=== PATIENT | male | born 2005 | race Caucasian/White ===

== ENCOUNTER 2025-03-19 11:29 | Emergency (ER) | payer OTHER, SELFPAY ==
[2025-03-19 11:47] VITALS: BP 122/72; PULSE 63; RESP 18; TEMP 36.8; O2SAT 99
--- NOTE | 2025-03-19 12:53 | ED.WOUNDLAC ---
HPI - Wound/Laceration General Chief Complaint: Wound/Laceration Stated Complaint: cut leg Time Seen by Provider: 03/19/25 12:46 Source: patient and RN notes reviewed Mode of arrival: ambulatory Limitations: no limitations History of Present Illness HPI narrative: 19-year-old male patient presents today with a laceration to his left thigh that was sustained 1.5 hours prior to exam. He was turning off a chainsaw when the chain cut his thigh. It has been 5 years since his last tetanus shot. He flushed with hydrogen peroxide prior to arrival. Related Data Home Medications ?Medication ?Instructions ?Recorded ?Confirmed ?Last Taken ?Type omeprazole 03/19/25 Unknown History zyfaxin 03/19/25 Unknown History Allergies Allergy/AdvReac Type Severity Reaction Status Date / Time clindamycin Allergy Mild Verified 08/08/08 13:40 PMFSH Comments At time of signature, I have reviewed and agree with nursing past medical, surgical, social and family history unless otherwise noted. Please see nursing chart for further information. There is no relevant family history pertinent to the presenting complaint Exam Narrative: GENERAL: Well-appearing, well-nourished, and in no acute distress. HEAD: Normocephalic, atraumatic. EYES: EOMI. No redness or drainage. Conjunctivae normal. ENT: Mucous membranes pink and moist. NECK: Normal AROM. CHEST: No respiratory distress. EXTREMITIES: Normal range of motion. No edema. SKIN: Warm, dry, no rash. Capillary refill normal. Normal skin turgor. 4 cm full-thickness linear laceration to the left anterior thigh. Approximately 0.5 cm portion penetrates to the adipose. 2cm partial thickness linear abrasion laterally to the laceration. Distal sensation intact. Capillary refill normal. Full range of motion of the leg. NEURO: No focal deficits. Alert and oriented x3. Gait steady. PSYCH: Normal affect. No signs of depression or anxiety. Course Course Level of Care: Express Care Visit Vital Signs Vital signs: Vital Signs Temperature 98.2 F 03/19/25 11:47 Pulse Rate 63 03/19/25 11:47 Respiratory Rate 18 03/19/25 11:47 Blood Pressure 122/72 03/19/25 11:47 Pulse Oximetry 99 03/19/25 11:47 Oxygen Delivery Room Air 03/19/25 11:47 Temperature 98.2 F 03/19/25 11:47 Pulse Rate 63 03/19/25 11:47 Respiratory Rate 18 03/19/25 11:47 Blood Pressure 122/72 03/19/25 11:47 Pulse Oximetry 99 03/19/25 11:47 Oxygen Delivery Room Air 03/19/25 11:47 Review Procedures Laceration Laceration 1: Date: 03/19/25 Time: 13:00 Site: lower extremity Side (If applicable): left Size (cm): 4 Description: linear Depth: simple, single layer Local Anesthetic: lidocaine 1% Amount of anesthesia used (mL): 6 Pre-repair: wound explored and irrigated ====== Skin Level ====== Skin layer closed with: nylon Size (cm): 4-0 Number of sutures: 6 Technique: simple, interrupted ====== Subcutaneous Layer ====== ====== Muscle Layer ====== ====== Tendon Layer ====== Laceration 2: Date: 03/19/25 Time: 13:00 Site: lower extremity Side (If applicable): left Size (cm): 2 Description: linear Depth: simple, single layer Pre-repair: irrigated ====== Skin Level ====== Skin layer closed with: dermabond ====== Subcutaneous Layer ====== ====== Muscle Layer ====== ====== Tendon Layer ====== MDM - Wound/Laceration MDM Narrative Medical decision making narrative: 19-year-old male patient presents today with a laceration to his left thigh that was sustained 1.5 hours prior to exam. He was turning off a chainsaw when the chain cut his thigh. It has been 5 years since his last tetanus shot. He flushed with hydrogen peroxide prior to arrival. Upon exam, 4 cm full-thickness linear laceration to the left anterior thigh. Approximately 0.5 cm portion penetrates to the adipose. 2cm partial thickness linear abrasion laterally to the laceration. Distal sensation intact. Capillary refill normal. Full range of motion of the leg. Larger wound repaired with sutures. Swallowing wound repaired with glue. Care instructions given. Tetanus shot given. Patient agrees with plan. Vital signs stable. Anticipatory guidance given. Differential Diagnosis Differential diagnosis: Likely laceration and avulsion of skin Critical Care Time Critical Care Time Critical Care Time: No Discharge Plan Discharge Clinical Impression: Laceration of left leg Qualifiers: Encounter type: initial encounter Qualified Code(s): S81.812A - Laceration without foreign body, left lower leg, initial encounter Patient Disposition: Home Condition: Stable Instructions: Care For Your Stitches (DC), Laceration (DC) Additional Instructions: Your sutures need to be removed in 10 days. Wear the dressing that has been applied for the first 24 hours to allow a scab to start forming. After this, you may remove and wash as normal with soap and water. Do NOT wash with peroxide or alcohol. Do NOT apply antibiotic ointment. Do not submerge your sutures in standing water such as pools, hot tubs, or sinks until they are removed. Take tylenol or ibuprofen at home for pain, if able. Follow up with your PCP with any signs of infection such as redness, swelling, increased pain, or drainage. The glue on the small cut will fall off on its own. Your tetanus shot has been updated today. Patient Language: Ukrainian Prescriptions: No Action zyfaxin omeprazole Follow-up/Referrals: UNKNOWN,DOCTOR [Primary Care Provider] Time of Disposition: 13:32
--- OUTSIDE RECORDS SUMMARY | 2025-03-19 13:42 | XMS_ITS | Encounter Summary ---
Author Organization [facility] Address [address] [place] [address] Care Team Providers Care Control Specialist Name Role Phone Alfonzo Moraes MD Primary Care Provider Encounter Details Date Type Department Care Team (Late st Contact Info) Description 01/09/2016 Historical Encounter [facility] HISTORICAL DATA [address] [place] [address] Provider, Global Category Manager Historical Conversion Social History Tobacco Use Types Packs/Day Years Used Date Smoking Tobacco: Never Assessed Sex and Gender Information Value Date Recorded Sex Assigned at Not on file Legal Sex Male 7:17 AM CDT Gender Identity Not on file Sexual Orientation Not on file documented as of this encounter Plan of Treatment Not on file documented as of this encounter Visit Diagnoses Not on filedocumented in this encounter Care Teams Control Specialist Relationship Specialty Start Date End Date Alfonzo Moraes MD [address] [facility] [address] [place] [address] PCP - General Pediatrics 08/05/18 documented as of this encounter
--- OUTSIDE RECORDS SUMMARY | 2025-03-19 13:42 | XMS_ITS | Encounter Summary ---
Author Organization [facility] Address [address] [place] [address] Care Team Providers Care Net Solutions Architect Name Role Phone Alfonzo Moraes MD Primary Care Provider [phone] Encounter Details Date Type Department Care Team (Late st Contact Info) Description 01/24/2016 Historical Encounter [email or web address] H[facility] [address] [place] [address] Provider, Surveillance Specialist Historical Conversion Social History Tobacco Use Types Packs/Day Years Used Date Smoking Tobacco: Never Assessed Sex and Gender Information Value Date Recorded Sex Assigned at Not on file Legal Sex Male 7:17 AM CDT Gender Identity Not on file Sexual Orientation Not on file documented as of this encounter Miscellaneous Notes * [facility] converted histories - Provider, Surveillance Specialist Historical Conversion - 01/24/2016 12:00 AM CDT As of Date: (01-25-2016) Past Medical History (Recorded: 07-29-2012) Allergies Past Surgical History (Recorded: 07-29-2012) None Family History (Recorded: 07-29-2012) Aunt/Unkle-Ashma documented in this encounter Plan of Treatment Not on file documented as of this encounter Visit Diagnoses Not on filedocumented in this encounter Care Teams Net Solutions Architect Relationship Specialty Start Date End Date Alfonzo Moraes MD [address] [place] [address] [address] [place] [address] PCP - General Pediatrics 08/05/18 documented as of this encounter
--- OUTSIDE RECORDS SUMMARY | 2025-03-19 13:42 | XMS_ITS | Clinical Summary ---
Author Organization [facility] Address [address] [place] [address] Care Team Providers Care Director Social Name Role Phone Alfonzo Moraes MD Primary Care Provider [phone] Allergies No known active allergies Medications hydrocortisone butyrate (LOCOID) 0.1 % Crea apply twice daily for no longer then 2 weeks at a time 6 6 Active emollient combination no.44 (HPR) Foam apply twice daily on the dry spots 1 3 6 Active loratadine (CLARITIN LIQUI-GEL) 10 mg Cap 6 Active EPINEPHRINE 0.3 mg/0.3 mL AtIn injection (> 30 kg) 7 Active clindamycin (CLEOCIN) 150 mg capsuleIndicatio ns:Impetigo,Foll iculitis Take 1 tablet twice daily for 10 days. 20 capsule 7 Active fluticasone propionate (FLONASE) 50 mcg/actuation nasal spray 50 mcg by Each Nare route daily. Active cetirizine (ZYRTEC) 10 MG tablet Take 10 mg by mouth daily. Active triamcinolone (KENALOG) 0.1 % creamIndications :Irritant contact dermatitis, unspecified trigger Apply topically 2 (two) times daily To affected areas; for 14 days at a time. 15 g 9 Active mupirocin (BACTROBAN) 2 % ointmentIndicati ons:Impetigo Apply to the affected twice daily for 14 days.. 30 g 9 Active crisaborole (EUCRISA) 2 % OintIndications: Irritant contact dermatitis, unspecified trigger Apply 1 application topically 2 (two) times daily. 60 g 2 9 Active oxiconazole (OXISTAT) 1 % CreaIndications: Pityrosporum folliculitis Apply 1 application topically daily To face, shoulders, and back. 30 day supply.. 60 each 2 0 Active adapalene 0.3 % gelIndications:A cne vulgaris Apply topically nightly Pea-sized amount to face, shoulders, back.30 day supply.. 45 g 3 0 Active ketoconazole (NIZORAL) 2 % creamIndications :Tinea pedis Apply topically 2 (two) times a day. 60 g 2 3 Active Active Problems Problem Noted Date Diagnosed Date Acne vulgaris 01/09/2020 Assessment & Plan (01/09/2020 8:34 AM CDT): CC: acne HPI: Start & timing: month(s) Severity : mild Context & Modifying factors: Patient washes twice a day and in the morning with Neutrogena, he uses Stridex. PE: papulo-pustular back, forehead, nose and shoulders 2 - Mild severity; some noninflammatory lesions with no more than a few inflammatory lesions (no nodular lesions) A - Milder scarring - macular erythematous pigmented, mildly atrophic dish-like ASSESSMENT: The patient's condition is new PLAN: MORNING: Wash: Cetaphil/CeraVE/Neutrogena gentle cleanser Apply: Oxiconazole Cream to face, shoulders, back Moisturize: Cetaphil/CeraVE facial moisturizer (with SPF 30 daytime) at your pharmacy to minimize redness, decrease darkening of the skin which can happen in old acne spots and to prevent side effects of dryness from acne medication. EVENING: Wash: Cetaphil/CeraVE/Neutrogena gentle cleanser Moisturize: Cetaphil/CeraVE facial moisturizer (with SPF 30 daytime) at your pharmacy to minimize redness and to prevent side effects of dryness from acne medication) Apply: Pea-sized amount of Adapalene 0.3% gel to face Apply the medication at bedtime every third night for 2 weeks after moisturizer. If you aren t experiencing side effects, apply every other night for 2 weeks after moisturizer. Once skin is tolerating the medication every other night, increase to nightly use after moisturizer. If skin is tolerating, then use the medication first and apply a moisturizer if recommended. ADDITIONAL HINTS TO HELP: Keep hair off the face Use facial moisturizer if face gets too dry. Moisturize 5 minutes after medication dries (brushing teeth typically is around 2-3 minutes) Eat a low carbohydrate diet (only study proven diet related cause of acne) Use fingertips and hands only, not need for a washcloth. DO NOT PICK AT ACNE The etiology of acne includes sebum production (hormones), follicular hyperkeratinization, bacteria, and inflammation. It is important to not manipulate the lesions. High carbohydrate diets can be a contributing factor. Instructions on proper application of medications, including careful application of retinoids, if prescribed was discussed. Emphasis on length of treatment prior to seeing significant results as well as initial flares with treatment discussed. 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 HPI: Start & timing: few month(s) Quality: small bumps Severity: mild Context & Modifying factors: Patient admits this seems to be worse in hot/humid weather or with exercise. Treatments tried include: none PE: Monomorphous, erythematous papules and pustules in a follicular pattern distributed on face, shoulders, and upper back ASSESSMENT: The patient's condition is new PLAN: Start on oxiconazole cream daily to face, shoulders, and back. Irritant contact dermatitis 01/09/2019 Assessment & Plan (01/09/2019 2:11 PM CDT): Chief Complaint & Location: itchy rash located on the chin, arms, left foot Start & timing: many week(s) Quality: itchy and bother some Severity: mild Context: any correlation that is noticed? Patient reported his football helmet chin strap often rubs against his chin and re-opens sores. Mother also reports the patient often picks at the affected areas. Modifying factors: Treatments that have been tried include: mupirocin ointment and OTC fungal spray without improvement Physical Exam: irritated pink scaly patches on chil, bilat arms, and left dorsal foot ASSESSMENT: The patient's condition is new After cleansing the area with alcohol, a 15 blade was used to scrape superficially on the skin to obtain a keratinocyte sampling (Time collected: 1:47PM___) which was then applied to a glass slide. ALEXANDR and cholorazol black was applied to the glass slide, warming with a flame was performed. Spores and Hyphae seen and positive for fungus? NO Mites/Eggs/Larva? NO Positive for Scabies? NO Unless specified otherwise above, the quality of the H&E and any other stains including alexandr, tzanck, and mineral oil slide preps performed at [facility] is satisfactory. During histopathologic examination by Dr. Jeff Hopson (laboratory clerk) and other approved testing personel have confirmed each slide being read is appropriate according to the typical standards as outlined in the Dermatology CLIA Manual found at [address] [place] [address] [place] [address] & [address], [address]. PLAN: Irritant contact dermatitis is caused by direct physical or chemical injury to the upper level of skin. The damage caused by an irritant leads to inflammation, manifested in the skin as erythema, edema, and scaling. Prevention is of paramount importance. Remove the offending exposure, and protect the skin from re- exposure. We discussed common irritants; proper skin care, including the use of moisturizers; and protective clothing. In addition to above, our plan for this patient includes the following: Start Triamcinolone cream BID for 14 days and continue to use Mupirocin as needed. 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 Rated on pain scale of 1-10): moderate Duration (e.g., start & timing): some time,not sure for how long Timing (persistent? comes and goes): persistent Severity: moderate Context (anything noticed that might be the cause): none Modifying factors: Treatments tried are none Associated signs and symptoms from other system (e.g., fever, headache): none Physical Exam: irregularly pigmented nevus, 0.4 cm Assessment:irregularly pigmented nevus, 0.4 cm Plan: After discussion of the risks and benefits of the procedure, informed and written consent was obtained, 1% lidocaine with epinephrine was used for anesthesia. The lesion located on the __left scalp superior to the helix____ and measuring ____0.4 cm was removed using a derma blade after the area was prepped with alcohol and anesthesia with 1% lidocaine with epinephrine. Bleeding was controlled using monopolar electrodesiccation and a sterile dressing was applied. Wound care was discussed with written instructions provided. Pathology was sent to the lab. Benign nevus 08/05/2018 Assessment & Plan (08/05/2018 9:58 AM CDT): Chief Complaint: skin colored or brown spot(s) Location: back, arms, legs, neck and face. Start & timing: Gradually developed Quality: some flat and some raised, Severity: Mild unless itched, scratched, rubbed or dry. Then may become symptomatic including itching, stinging and burning. Context & Modifying factors: May become irritated when they get dry or get rubbed by clothing or other items. Physical Exam: pigmented macule(s) and papule(s) with normal appearance under dermatoscope ASSESSMENT: The patient's condition is new. PLAN: Benign nature of lesion(s) was explained. 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 Rated on pain scale of 1-10): moderate Duration (e.g., start & timing): some time, not sure how long Timing (persistent? comes and goes): persistent Severity: moderate Context (anything noticed that might be the cause): none Modifying factors: Treatments tried are : antifungal-OTC Associated signs and symptoms from other system (e.g., fever, headache): none Physical Exam: pitted papules on the right ball of foot Assessment: pitted papules on the right ball of foot Plan: Hibiclens and Dial soap Resolved Problems Problem Noted Date Diagnosed Date Resolved Date Impetigo 11/03/2016 08/05/2018 Folliculitis 11/03/2016 08/05/2018 Disorder of pigmentation 01/09/201603/2019 Overview (01/16/2016): Converted from [facility]: Description - Disorder of pigmentation, unspecified Dermatitis 01/09/2016 08/05/2018 Overview (01/16/2016): Converted from [facility]: Description - ECZEMA Irritated nevus 08/02/2015 08/05/2018 Overview (01/16/2016): Converted from [facility]: Description - Xerosis cutis Tinea pedis 08/02/2015 01/09/2016 Overview (01/16/2016): Converted from [facility]: Description - TINEA PEDIS Molluscum contagiosum 08/02/20152016 Overview (01/16/2016): Converted from [facility]: Description - Molluscum contagiosum 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 Overview (01/16/2016): Converted from [facility]: Description - HYPERHIDROSIS Plantar wart 07/29/2012 01/09/2016 Overview (01/16/2016): Converted from [facility]: Description - WARTS PLANTAR Family History Medical History Relation Name Comments Melanoma Neg Hx Skin cancer Neg Hx Social History Tobacco Use Types Packs/Day Years Used Date Smoking Tobacco: Never Smokeless Tobacco: Never Tobacco Cessation:Counseling Given: No Sex and Gender Information Value Date Recorded Sex Assigned at Not on file Legal Sex Male 7:17 AM CDT Gender Identity Not on file Sexual Orientation Not on file Last Filed Vital Signs Vital Sign Reading Time Taken Comments Blood Pressure 112/56 07/29/2012 1:37 PM CDT Pulse - - Temperature - - Respiratory Rate - - Oxygen Saturation - - Inhaled Oxygen Concentration - - Weight 59 kg (130 lb) 12/20/2020 10:54 AM CDT Height 177.8 cm (5' 10) 12/20/2020 10:54 AM CDT Body Mass Index 18.65 12/20/2020 10:54 AM CDT Plan of Treatment Health Maintenance Due Date Last Done Comments Mood Screen 2015 HPV Vaccines (1 - Male 3-dos e series) 07/21/2018 Meningococcal B Vaccine (1 o f 2 - Standard) 2019 Hepatitis B Vaccines (1 of 3 - 19+ 3-dose series) 07/21/2022 Tetanus Booster Vaccines 07/21/2022 Lipid Screening 2023 COVID-19 Vaccine (1 - 2024-2 6 season) 2024 Seasonal Influenza Vaccine (#1) 2025 Hepatitis A Vaccines Aged Out No long er eligible based on patient's age to complete this topic Hib Vaccines Aged Out No longer eligi ble based on patient's age to complete this topic Meningococcal (ACWY) Vaccines Aged Out No longer eligible based on patient's age to complete this topic Pediatric RSV Vaccines Aged Out No lo nger eligible based on patient's age to complete this topic Pneumococcal Vaccine (0-5y, or all patients at risk) Aged Out No longer eligible b ased on patient's age to complete this topic Polio Vaccines Aged Out No longer julieta gible based on patient's age to complete this topic Insurance [facility] Care Teams Director Social Relationship Specialty Start Date End Date Alfonzo Moraes MD [address] [facility] [address] [place] [address] PCP - General Pediatrics 08/05/18
--- OUTSIDE RECORDS SUMMARY | 2025-03-19 13:42 | XMS_ITS | Clinical Summary ---
Author Organization [facility] Address [facility] [place] [address] Care Team Providers Care Chainstitch Pants Outseamer Name Role Phone Alfonzo Moraes MD Primary Care Provider [phone] Allergies No known active allergies Medications No known medications Social History Tobacco Use Types Packs/Day Years Used Date Smoking Tobacco: Never Smokeless Tobacco: Never Sex and Gender Information Value Date Recorded Sex Assigned at Not on file Legal Sex Male 11:24 AM CDT Gender Identity Not on file Sexual Orientation Not on file Last Filed Vital Signs Vital Sign Reading Time Taken Comments Blood Pressure 111/58 07/15/2021 9:01 AM CDT Pulse 54 07/15/2021 9:01 AM CDT Temperature 36.3 C (97.4 F) 07/15/2021 9:01 AM CDT Respiratory Rate - - Oxygen Saturation - - Inhaled Oxygen Concentration - - Weight 69.3 kg (152 lb 12.8 oz) 07/15/2021 9:01 AM CDT Height 172.7 cm (5' 7.99) 07/15/2021 9:01 AM CD T Body Mass Index 23.24 07/15/2021 9:01 AM CDT Plan of Treatment Not on file Insurance [employer] - PPO Care Teams Chainstitch Pants Outseamer Relationship Specialty Start Date End Date Alfonzo Moraes MD [address] [place] [address] PCP - General Pediatrics 12/30/18
[2025-03-19] MEDS: TETANUS,DIPHTHERIA,AC PERTUSSIS ADULT (0.5 ML) BOOSTRIX IM (13:44)
--- OUTSIDE RECORDS SUMMARY | 2025-03-19 13:47 | XMS_ITS | Data Portability ---
Author Organization [facility] Med[facility]ine [facility] Orthopedic, [facility] - ER Address [address] [place] [address] Assessment No assessment recorded. Plan of Treatment Reminders Order Date Submit Date Provider Last Modified By Organization Details Last Modified Time Details Appointments None record ed. Lab None record ed. Referral None record ed. Procedures None record ed. Surgeries None record ed. Imaging None record ed. Medication Orders None record ed. Patient TargetsNo targets recorded. Patient InstructionsNo instructions recorded. Reason for Referral None Reported. 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 Medical Equipment None Reported. Allergies No known drug allergies Medications Name Sig Start Date Stop Date Status Note LastModified by Organization Details LastModified Time amoxicill in 500 mg capsule TAKE 1 CAPSULE BY MOUTH TWICE A DAY FOR 10 DAYS active Not Available Not Available No t Available sulfaceta mide sodium-rodriguez lfur 10 %-5 % (w/w) topical cleanser active Not Available Not Available Not Available hydrocodo ne 10 mg-acetam inophen 325 mg tablet take 1 tablet by oral route every 6 hours as needed for pain 2021 active hydrocod one-acet aminophe n 10-325 mg oral tablet P rescribe Status: Prescrib ed on: 08/23/19 22 7:22AM U ser: deena on Pharm acyVerif ied: 08/23/19 22 7:27AM P rescript ion Date: 08/23/19 22 07:23:17 Clinica l Medicati on Id: [id number] U nique Medicati on Id: [id number] P rescribe d: Practice Prescrib ed Medicati on Not Available Not Available Not Available meloxicam 7.5 mg tablet Take 1 tablet every day by oral route as needed. active Not Available Not Available No t Available promethaz ine 25 mg tablet take 1 tablet (25 mg) by oral route every 6 hours as needed for 5 days 08/27 completed prometha zine 25 mg oral tablet P rescribe Status: Prescrib ed on: 08/23/19 22 7:22AM U ser: deena on Est. Completi on: 08/28/19 22 Pharm acyVerif ied: 08/23/19 22 7:27AM P rescript ion Date: 08/23/19 22 07:23:17 Clinica l Medicati on Id: [id number] U nique Medicati on Id: [id number] P rescribe d: Practice Prescrib ed Medicati on Not Available Not Available Not Available ibuprofen 600 mg tablet active Not Available Not Available Not Available Naprosyn 500 mg tablet take 1 tablet (500 mg) by oral route every 12 hours with food for 14 days 09/05 completed Naprosyn 500 mg oral tablet P rescribe Status: Prescrib ed on: 08/23/19 22 7:22AM U ser: deena on Est. Completi on: 09/06/19 22 Pharm acyVerif ied: 08/23/19 22 7:27AM P rescript ion Date: 08/23/19 22 07:23:17 Clinica l Medicati on Id: [id number] U parag Medicati on Id: [id number] P silas d: Practice Prescrib ed Medicati on Not Available Not Available Not Available ketoconaz ole 2 % topical cream active Not Available Not Available Not Available indometha donato ER 75 mg capsule,e xtended release TAKE 1 CAPSULE BY MOUTH TWICE DAILY FOR 5 DAYS active Not Available Not Available No t Available amoxicill in 875 mg-potass ium clavulana te 125 mg tablet TAKE 1 TABLET BY MOUTH TWICE A DAY active Not Available Not Available No t Available Vitals None Recorded Social History None recorded. Functional Status None recorded. Mental Status None recorded. Family History Nothing Reported Notes:Daughter: Other Sister : Other Son: Other Medical History No medical history recorded. Past Encounters Encounter ID Performer Location Encounter Start Date Encounter Closed Date Diagnosis/Indication Diagnosis SNOMED-CT Code Diagnosis ICD10 Code Diagnosis IMO Codes Diagnosis Note [id number] Silver Angulo *[facility] [address] [address] 11/12/2021 09:59:04 11/12/2021 11:11:25 Acetabular labrum tear 108672693 S73.191A Femoral ac etabular impingement 813209594 M25.851 [id number] Thom Fletcher MD *[facility] [address] [address] 11/14/2021 11:03:57 11/14/2021 12:05:14 Acetabular labrum tear 269903669 S73.191A Femoral ac etabular impingement 954244393 M25.851 Patient's Name: Dejon Galeana zohreh: Isrrael Fletcher M.D.Therap y Location: [facility] Sports Medicine and Orthopedic sTherapist : first availableD iagnosis:P ost-operat jose Diagnosis: 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 Labral tear extending from 12:30 to 2:30 with mild chondral labral separation Procedure: Right hip arthroscop ic sub-spine decompress ion and acetabulop lasty with labral repair using 2 anchors at 1 and 2:00, femoroplas ty and capsular closureDat e of procedure : performed on 08/22/2021 Weight bearing status: WBATInject ion none givenNext MD visit: 3 weeksComme nts: refer to rehab protocols at [email or web address] Requested: Evaluate and Treat, Joint ROM and strengthen ing, and follow protocol for Hip Impingemen t Post-opFre quency of Treatment: 1-2 days/weekD uration of Treatment: 4-6 weekSport specific training [id number] Silver Angulo *[facility] - [facility] Orthopedi [address] [address] 11/19/2021 10:54:40 11/19/2021 12:00:06 Acetabular labrum tear 683094016 S73.191A Femoral ac etabular impingement 861513400 M25.851 [id number] Silver Angulo *[facility] [address] [address] 11/21/2021 08:49:09 11/21/2021 09:55:11 Acetabular labrum tear 039462516 S73.191A Femoral ac etabular impingement 954576727 M25.851 [id number] Silver Angulo *[facility] Orth[facility] [address] [address] 11/26/2021 09:55:09 11/26/2021 10:59:52 Acetabular labrum tear 277308891 S73.191A Femoral ac etabular impingement 271749572 M25.851 [id number] Thom Fletcher MD *[facility] [address] [place] [address] 12/08/2021 12:51:56 12/08/2021 13:24:17 Femoral acetabular impingement 119965793 M25.851 Acetabular labrum detachment 541763879 S73.191D [id number] Marlo Merino DPT *[facility] [address] [place] [address] 12/10/2021 09:58:49 12/10/2021 11:01:03 Acetabular labrum tear 096262838 S73.191A Femoral ac etabular impingement 491814031 M25.851 [id number] Thom Fletcher MD *[facility] [address] [place] [address] 01/23/2022 14:10:45 01/23/2022 14:27:05 Tendinitis of right psoas tendon 1954568162 82097 M76.11 [id number] Thom Fletcher MD *[facility] [address] [place] [address] 04/13/2022 14:24:33 04/13/2022 15:17:50 Pain of right hip joint 4271900211 18817 M25.551 Acetabular labrum detachment 532110369 S73.191D [id number] Thom Fletcher MD *[facility] [address] [place] [address] 10/05/2022 13:50:17 10/05/2022 14:18:17 Acetabular labrum detachment 783929738 S73.191D Femoral ac etabular impingement 751258036 M25.851 Patellofem oral stress syndrome 704782861 M22.2X1 Acetabular labrum tear 980585467 S73.191A [id number] Alexys Wilson, PT *[facility] [address] [address] 10/13/2022 14:47:04 10/13/2022 15:52:52 Acetabular labrum tear 959780866 S73.191A Femoral ac etabular impingement 258889626 M25.851 [id number] Alexys Wilson PT *[facility] [address] [place] [address] 10/16/2022 14:56:42 10/19/2022 12:02:26 Acetabular labrum tear 801060134 S73.191A Femoral ac etabular impingement 409012861 M25.851 [id number] Alexys Wilson, PT *[facility] [address] [place] [address] [place] [address] 10/20/2022 16:57:55 10/20/2022 18:10:04 Acetabular labrum tear 918032839 S73.191A Femoral ac etabular impingement 606626758 M25.851 [id number] Alexys Wilson PT *[facility] [address] [place] [address] 11/06/2022 08:30:53 11/06/2022 09:27:38 Acetabular labrum tear 859363626 S73.191A Femoral ac etabular impingement 591420673 M25.851 [id number] Alexys Wilson PT *[facility] [address] [place] [address] 11/16/2022 10:02:40 11/16/2022 11:04:31 Acetabular labrum tear 251654321 S73.191A Femoral ac etabular impingement 759359723 M25.851 [id number] Alexys Wilson PT *[facility] [address] [address] [place] [address] 11/23/2022 15:18:15 11/23/2022 16:16:24 Acetabular labrum tear 909177532 S73.191A Femoral ac etabular impingement 739357758 M25.851 Health Concerns Section Related Observation LastModified by Organization Detai ls LastModified Time None Recorded Concern Status LastModified by Organization Details LastModified Time None Recorded Advance Directives Directive None Recorded Payers Insurance Date Sequence Insurance Name Policy Number Policy Sinha Covered Member ID Sinha Member ID Guarantor Name 11/21/2022 1 LORENE [id number] Dejon Holt [id number] Dejon Holt Notes Date Note Type Note Provider Name and Address Organization Details Recorded Time 10/16/2022 text/html SUBJECTIVE:Patient reports he was sore after last session and his knees feel stiff. OBJECTIVE:Todays Treatment: See treatment log/flow sheet below for details of therapeutic exercises and therapeutic activities completed in todays session. OBJECTIVE DATA:: ASSESSMENT:Focus today on hip mobility and followed by knee strength and stability. Pt had no pain during session only reported some stiffness through low back after reverse nordics. Pt is progressing as expected towards established goals and had Mild pain with treatment today. Recommend patient continue treatment plan including:, PT, modalities, and continue PT per POC. PLAN:Continue plan of care established upon evaluation and progress therapeutic exercise, therapeutic activity, manual therapy, neuromuscular re-education, ROM per protocol, strengthening per protocol, and per POC established upon evaluation DX: R hip labral repair, femoroplasty, R knee pain, LBP DOS:08/22/21 PO WK: 1 year +PMHx: n/aPT Eval: 10/13/22 (PT POC 6 months; expires 04/14/23)STACY: n/Barbarasit #: 2Work on quad strength, hip/lumbar mobility, and core stability/antirotati on Manual Therapy: 0 minTherapeutic Exercises 55 min Hip mobility series:> Quadruped Rockbacks: PSC> 1/2 kneel Hip flexor Stretch: PSC> [place] Stretch: PSC> Incline Bench [place] Stretch c D2 flexion: 10x> 1/2 hip openers> 1/2 kneel HS Sliders: 20x Reverse Nordics: 3x8, Band AATG SS c Heel elevated: 6g2Nmsqp ISO hold c BTT press/rotation: 3x5 Heel raised goblet squats w/ TB: 3x10 --SL heel tap:BFR knee extension: 1x30, 2x15, 70% occlusion, 5 lbs Mark Jones services provided under the direct supervision of Alexys Wilson, PT,DPT Alexys Wilson, PT [address], [place], [address], [facility] Sports Medicine and Orthopedic 10/19/2022 12:02:09 10/20/2022 text/html SUBJECTIVE: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 OBJECTIVE:Todays Treatment: See treatment log/flow sheet below for details of therapeutic exercises and therapeutic activities completed in todays session. OBJECTIVE DATA:: No new findings. ASSESSMENT:Focus today on hip mobility and followed by knee strength and core stability/antirotati on exercises. Tolerated all exercise without any complications. Pt is progressing as expected towards established goals and had Mild pain with treatment today. Recommend patient continue treatment plan including:, PT, modalities, and continue PT per POC. PLAN:Continue plan of care established upon evaluation and progress therapeutic exercise, therapeutic activity, manual therapy, neuromuscular re-education, ROM per protocol, strengthening per protocol, and per POC established upon evaluation DX: R hip labral repair, femoroplasty, R knee pain, LBP DOS:08/22/21 PO WK: 1 year +PMHx: n/aPT Eval: 10/13/22 (PT POC 6 months; expires 04/14/23)STACY: n/Julius #: 3Work on quad strength, hip/lumbar mobility, and core stability/antirotati on Manual Therapy: 15 minHip mob: lateral/inferior Therapeutic Exercises 45 min Hip/Lumbar mobility:> Quadruped Rockbacks: PSC> 1/2 kneel Hip flexor Stretch: PSC> [place] Stretch: PSC> Incline Bench [place] Stretch c D2 flexion: 10x> 1/2 hip openers> 1/2 kneel HS Sliders: 20x Hip/Glute Strengthening:Side Plank Hip ABD: 3x10 Knee/Quad Strengthening:Revers e Nordics: 3x8, Band AATG SS c Heel elevated: 8e3Ibvso ISO hold c BTT press/rotation: 2t2Yamj raised goblet squats w/ TB: 3x10SL Heel raised ISO: 57q35FJB knee extension: 1x30, 2x15, 70% occlusion, 5 lbs Core/Anti-rotation:S plit Squat Pallof Press: 1m74Ignvrvkj: 2x10 eaDeadbugs LE X, GTT: 2x10 ea HEP Alexys Wilson, PT [address] [facility], [place], [address], [facility] Sports Medicine and Orthopedic 10/20/2022 17:56:52 11/06/2022 text/html SUBJECTIVE: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 He played his last game this week and will be in PT more consistently now. OBJECTIVE:Todays Treatment: See treatment log/flow sheet below for details of therapeutic exercises and therapeutic activities completed in todays session. OBJECTIVE DATA:: No new findings. ASSESSMENT:Focus today on hip/lumbar mobility and quad ISO/ecc loading. Tolerated all exercise without any complications. Pt is progressing as expected towards established goals and had Mild pain with treatment today. Recommend patient continue treatment plan including:, PT, modalities, and continue PT per POC. PLAN:Continue plan of care established upon evaluation and progress therapeutic exercise, therapeutic activity, manual therapy, neuromuscular re-education, ROM per protocol, strengthening per protocol, and per POC established upon evaluation DX: R hip labral repair, femoroplasty, R knee pain, LBP DOS:08/22/21 PO WK: 1 year +PMHx: n/aPT Eval: 10/13/22 (PT POC 6 months; expires 04/14/23)STACY: n/aVisit #: 4Work on quad strength, hip/lumbar mobility, and core stability/antirotati on Manual Therapy: 0 minHip mob: lateral/inferior Therapeutic Exercises: 60 min Hip/Lumbar mobility:> Quadruped Rockbacks: PSC> 1/2 kneel Hip flexor Stretch: PSC> [place] Stretch: PSC> Incline Bench [place] Stretch c D2 flexion: 10x> 1/2 hip openers> 1/2 kneel HS Sliders: 20x Hip/Glute Strengthening:Side Plank Hip ABD: 3x10 Knee/Quad Strengthening:Revers e Nordics: 3x8, Band AATG SS c Heel elevated: 1v3Qhoab ISO hold c BTT press/rotation: 1q4Szot raised goblet squats w/ TB: 3x10SL Heel raised ISO: 76l42MHT knee extension: 1x30, 2x15, 70% occlusion, 5 lbsFFESS ISO: 3x4x15, 10 lbsHeel Taps: 4x8, 10 lbsReverse plank marches: 3x10 eaSL plate around the worlds: 3x10, 10 lbs Core/Anti-rotation:S plit Squat Pallof Press: 8l92Oisvoyel: 2x10 eaDeadbugs LE X, GTT: 2x10 ea WEST Wilson, PT [address], [place], [address], [facility] Sports Medicine [facility] Orthopedic 11/06/2022 09:24:33 11/16/2022 text/html SUBJECTIVE:Patient reports his knees are still aching and painful. Reports anterior knee pain that is deeper OBJECTIVE:Todays Treatment: See treatment log/flow sheet below for details of therapeutic exercises and therapeutic activities completed in todays session. OBJECTIVE DATA:: No new findings. ASSESSMENT:Focus today on hip/lumbar mobility and quad ISO loading. BFR performed today at end of session to further target quads c decreased loading. Tolerated all exercise without any complications. Pt is progressing as expected towards established goals and had Mild pain with treatment today. Recommend patient continue treatment plan including:, PT, modalities, and continue PT per POC. PLAN:Continue plan of care established upon evaluation and progress therapeutic exercise, therapeutic activity, manual therapy, neuromuscular re-education, ROM per protocol, strengthening per protocol, and per POC established upon evaluation DX: R hip labral repair, femoroplasty, R knee pain, LBP DOS:08/22/21 PO WK: 1+ yearPMHx: n/aPT Eval: 10/13/22 (PT POC 6 months; expires 04/14/23)STACY: n/Julius #: 5Work on quad strength, hip/lumbar mobility, and core stability/antirotati on Manual Therapy: 0 minHip mob: lateral/inferior Therapeutic Exercises: 60 min Hip/Lumbar mobility:> Quadruped Rockbacks: PSC> 1/2 kneel Hip flexor Stretch: PSC> [place] Stretch: PSC> Incline Bench [place] Stretch c D2 flexion: 10x> 1/2 hip openers> 1/2 kneel HS Sliders: 20x Hip/Glute Strengthening:Side Plank Hip ABD: 3x10 --Captain Moisés Hip ABD ISO: 4x20 Knee/Quad Strengthening:Spanis h Squats: 5x20 PSCSoleous Raises: 3x20, 30lbsReverse Nordics: 3x8, Band A ---ATG SS c Heel elevated: 3x8 ---Lunge ISO hold c BTT press/rotation: 3x5 --Heel raised goblet squats w/ TB: 3x10 --SL Heel raised ISO: 10x10 --FFESS ISO: 3x4x15, 10 lbs --Heel Taps: 4x8, 10 lbs --Reverse plank marches: 3x10 ea --SL plate around the worlds: 3x10, 10 lbs -- Core/Anti-rotation: --Split Squat Pallof Press: 0g03Zynnxchq: 2x10 eaDeadbugs LE X, GTT: 2x10 ea BFR: LOC : [id number]> Knee ext machine: 10lbs> TM retro walk, 5' HEP DuncanMark Vang services provided under the direct supervision of Alexys Wilson, PT,DPT Alexys Wilson PT [address] [facility], [place], [address], [facility] Sports Medicine and Orthopedic 11/16/2022 11:23:49 11/23/2022 text/html SUBJECTIVE:Patient reports his knees are feeling better today. He will be leaving for school this wednesday. OBJECTIVE:Todays Treatment: See treatment log/flow sheet below for details of therapeutic exercises and therapeutic activities completed in todays session. OBJECTIVE DATA:: No new findings. ASSESSMENT:Pt was educated on HEP/warmup routine to work on when he goes back to school and his load management to alleviate some of his knee pain. Pt demonstrated great understanding of his HEP. He finished treatment with BFR for his quads. PLAN:Continue plan of care established upon evaluation and progress therapeutic exercise, therapeutic activity, manual therapy, neuromuscular re-education, ROM per protocol, strengthening per protocol, and per POC established upon evaluation DX: R hip labral repair, femoroplasty, R knee pain, LBP DOS:08/22/21 PO WK: 1+ yearPMHx: n/aPT Eval: 10/13/22 (PT POC 6 months; expires 04/14/23)STACY: n/aVisit #: 5Work on quad strength, hip/lumbar mobility, and core stability/antirotati on Manual Therapy: 0 minHip mob: lateral/inferior Therapeutic Exercises: 60 min Hip/Lumbar mobility:> Quadruped Rockbacks: PSC> 1/2 kneel Hip flexor Stretch: PSC> [place] Stretch: PSC> Incline Bench [place] Stretch c D2 flexion: 10x> 1/2 hip openers> 1/2 kneel HS Sliders: 20x Hip/Glute Strengthening:Side Plank Hip ABD: 3x10 --Captain Moisés Hip ABD ISO: 4x20 Knee/Quad Strengthening:Spanis h Squats: 5x20 PSCSoleous Raises: 3x20, 30lbsReverse Nordics: 3x8, Band A ---ATG SS c Heel elevated: 3x8 ---Lunge ISO hold c BTT press/rotation: 3x5 --Heel raised goblet squats w/ TB: 3x10 --SL Heel raised ISO: 10x10 --FFESS ISO: 3x4x15, 10 lbs --Heel Taps: 4x8, 10 lbs --Reverse plank marches: 3x10 ea --SL plate around the worlds: 3x10, 10 lbs -- Core/Anti-rotation: --Split Squat Pallof Press: 3h42Fujuxokc: 2x10 eaDeadbugs LE X, GTT: 2x10 ea BFR: LOC : [id number]> Knee ext machine: 10lbs> TM retro walk, 5' WEST Wilson, PT [address], [place], [address], [facility] Sports Medicine and Orthopedic 11/23/2022 16:11:51
== END 2025-03-19 13:49 | disposition home or self-care (01) ==
PROVIDERS: Emergency Provider Nurse Practitioner
DX: S81.812A Laceration without foreign body, left lower leg, initial encounter (principal); W29.3XXA Contact with powered garden and outdoor hand tools and machinery, initial encounter; Z23 Encounter for immunization
CPT/HCPCS: 12002; 90471; 90715; 99202; G0463